=== PATIENT | male | born 1965 | race Caucasian/White ===

== ENCOUNTER → 2020-02-09 15:45 | Outpatient (CLI) | payer MEDICARE, BC, SELFPAY ==
--- NOTE | ~2020-02-09 | XR_ITS ---
EXAMINATION: XR shoulder LT min 2V DATE: 02/09/2020 16:17 INDICATION: Left shoulder pain. TECHNIQUE: 4 views of left shoulder were obtained. COMPARISON: None. FINDINGS: Bone alignment is normal. No fracture. There is mild osteoarthritis of glenohumeral joint a nd acromioclavicular joint. IMPRESSION: 1. Mild polyarticular osteoarthritis. Reviewed, dictated and finalized at location A.
== END ==
PROVIDERS: Visit Provider Physician Assistant
DX: M19.012 Primary osteoarthritis, left shoulder (principal)
CPT/HCPCS: 73030

== ENCOUNTER 2023-03-29 09:00 | Outpatient (CLI) | payer MEDICARE, BC, SELFPAY ==
--- NOTE | ~2023-03-29 | NM_ITS ---
EXAMINATION: NM damaris stress w perfusion DATE: 03/29/2023 11:06 INDICATION: Chest pain TECHNIQUE: Rest images were obtained following intravenous administration of 10.9 mCi Tc99m tetrofosm in (Myoview). The patient was infused intravenously with Lexiscan (Regadenoson). Then, 34 mCi Tc99m t etrofosmin (Myoview) was administered intravenously, and stress images were obtained. Data was recons tructed into short axis and horizontal and vertical long axis SPECT images. Gated SPECT images were a lso obtained. COMPARISON: None. FINDINGS: There is no definite reversible or fixed perfusion abnormality to suggest ischemia or infar ction. There is normal left ventricular chamber size, wall motion and ejection fraction. Left ventr icular ejection fraction measures 69%. IMPRESSION: 1. Normal myocardial perfusion at rest and during stress. 2. Left ventricular ejection fraction measuring 69%. Reviewed, dictated and finalized at location A. OR [employer]
--- NOTE | 2023-03-29 09:34 | EST_ITS ---
Patient Info Name: Luan Portillo Age: 58 years : 1965 Gender: Male Ht: 71 in Wt: 165 lbs BSA: 1.94 m2 Exam Date: 03/29/2023 10:10 AM Exam Location: [facility] Patient Status: Outpatient Admit Date: 03/29/2023 Staff Ordering Physician: Earl Mark MD Attending Provider: Earl Mark MD Exercise Technologist: Yanira Ingram RDCS Exercise Physician: Bill Starks DO Exam Type: CA stress damaris w NM Study Info Indications R07.9 - Chest pain, unspecified A regadenoson stress test was performed. Summary 1. 1. Negative lexiscan stress test for ischemic ST changes by ECG criteria. 2. 2. Stable hemodynamics throughout the test. 3. 3. Nuclear scan to follow and will be reported separately. Please correlate with it. 4. 4. Patient informed of the above results. Protocol: Lexiscan Stress ECG Details Stage: REST Duration (min): 0 min : 56 sec HR (bpm): 47 SBP (mmHg): 148 DBP (mmHg): 103 Stage: REST Duration (min): 5 min : 54 sec HR (bpm): 50 SBP (mmHg): 148 DBP (mmHg): 103 Stage: STAGE 1 Duration (min): 1 min : 0 sec HR (bpm): 52 SBP (mmHg): 130 DBP (mmHg): 99 Stage: RECOVERY Duration (min): 1 min : 0 sec HR (bpm): 79 SBP (mmHg): 131 DBP (mmHg): 87 Stage: RECOVERY Duration (min): 2 min : 0 sec HR (bpm): 80 SBP (mmHg): 131 DBP (mmHg): 87 Stage: RECOVERY Duration (min): 3 min : 0 sec HR (bpm): 72 SBP (mmHg): 129 DBP (mmHg): 89 Stage: RECOVERY Duration (min): 4 min : 0 sec HR (bpm): 78 SBP (mmHg): 129 DBP (mmHg): 89 Stage: RECOVERY Duration (min): 4 min : 36 sec HR (bpm): 71 SBP (mmHg): 132 DBP (mmHg): 94 Rest HR: 50 bpm Peak HR: 88 bpm Rest Sys BP: 148 mmHg Peak Sys BP: 132 mmHg Max Pred HR: 161 bpm % Max Pred HR: 55 % Target HR: 137 bpm Max RPP: 11,616 bpm*mmHg Termination Reason: Completed protocol Cardiac Symptoms: Shortness of breath Total Time: 1 min : 0 sec Rest Velásquez BP: 103 mmHg Peak Velásquez BP: 94 mmHg Total Dose: 0.4 mg Resting ECG Sinus bradycardia. Stress ECG No ST changes. Arrhythmias None. Report Signatures
== END 2023-03-29 09:01 | disposition home or self-care (01) ==
LOC: ANHCARD 09:08
PROVIDERS: PCP Family Medicine Adolescent Medicine; Visit Provider Family Medicine Adolescent Medicine
DX: R07.9 Chest pain, unspecified (principal)
CPT/HCPCS: 78452; 93017; A9502; J2785